=== PATIENT | female | born 1955 | race African-American/Black ===

== ENCOUNTER 2016-08-22 07:23 | Outpatient (CLI) | payer OTHER ==
--- NOTE | 2016-08-22 09:12 | Mammography Report ---
BILATERAL DIGITAL SCREENING MAMMOGRAM with CAD: 08/22/16 07:23:00 CLINICAL: Routine screening. COMPARISON:07/27/15 FINDINGS: There are scattered areas of fibroglandular density.Low-density circumscribed benign right retroareolar nodule. No new mass, architectural distortion or suspicious calcifications. IMPRESSION: No mammographic evidence of malignancy. BI-RADS CATEGORY: 2 -- Benign RECOMMENDATION: Routine mammographic screening in one year. COMMENT: Patient follow-up letters are generated by our [employer] application.
== END 2016-08-22 07:24 | disposition home or self-care (01) ==
LOC: MAMMO 07:23
PROVIDERS: ATTEND Internal Medicine
DX: Z12.31 Encounter for screening mammogram for malignant neoplasm of breast (principal)
CPT/HCPCS: 77067; G0202